=== PATIENT | female | born 1970 | race Caucasian/White ===

== ENCOUNTER 2022-12-19 11:56 | Outpatient (CLI) | payer OTHER | END 2022-12-19 11:57 | disposition home or self-care (01) | LOC: CSHCT 11:56 | PROVIDERS: ATTEND Emergency Medicine | DX: Z12.2 Encounter for screening for malignant neoplasm of respiratory organs (principal); Z87.891 Personal history of nicotine dependence | CPT/HCPCS: 71271 ==

== ENCOUNTER 2023-12-25 09:43 | Outpatient (CLI) | payer OTHER | END 2023-12-25 09:44 | disposition home or self-care (01) | LOC: CSHCT 09:43 | PROVIDERS: ATTEND Family Medicine | DX: Z12.2 Encounter for screening for malignant neoplasm of respiratory organs (principal); F17.200 Nicotine dependence, unspecified, uncomplicated | CPT/HCPCS: 71271 ==

== ENCOUNTER 2025-02-17 09:05 | Outpatient (CLI) | payer SELFPAY | END 2025-02-17 09:06 | disposition home or self-care (01) | LOC: CSHCT 09:05 | PROVIDERS: ATTEND Family Medicine | DX: Z12.2 Encounter for screening for malignant neoplasm of respiratory organs (principal); F17.210 Nicotine dependence, cigarettes, uncomplicated | CPT/HCPCS: 71271 ==